=== PATIENT | male | born 1985 | race Asian ===

== ENCOUNTER 2018-11-10 21:30 | Emergency (ER) | payer MEDICAID ==
[~2018-11-10] VITALS: Ht 180.3 cm; Wt 118.5 kg
--- NOTE | 2018-11-10 21:42 | NUR ---
FS READ "HI"
[2018-11-10] MEDS ORDERED: SODIUM CHLORIDE FLUSH 10ML SYR IVF ONE (22:00)
[2018-11-10] MEDS ORDERED: SODIUM CHLORIDE 0.9% 1,000ML IVBOLUS ONE ×2 (22:00→23:30)
--- NOTE | 2018-11-10 22:00 | NUR ---
PT PRESENTS TO ED WITH C/O LEFT FLANK PAIN X 2 WEEKS. PT HAS HX DM1 AND REPORTS HE IS COMPLIANT WITH METFORMIN AND INSULIN. PT IS A&O, RESPS EVEN AND UNLABORED, DENIES N/V. PIV PLACED, LABS DRAWN AND SENT TO LAB, PT INSTRUCTED TO PROVIDE CLEAN CATCH UA. PT DENIES URGE TO VOID AT THIS TIME, URINAL AT BEDSIDE. BP AND SPO2 MONITORS IN PLACE. CALL LIGHT IN REACH. AWAITING CT, LAB AND UA RESULTS AT THIS TIME.
[2018-11-10 22:12] LABS: BASOPHILS # (AUTO) 0.02 x10^3/uL (0-0.1); BASOPHILS % (AUTO) 0 % (0-1); EOSINOPHILS # (AUTO) 0.04 x10^3/uL (0-0.4); EOSINOPHILS % (AUTO) 1 % (1-7); LYMPHOCYTES # (AUTO) 1.96 x10^3/uL (1-3.4); LYMPHOCYTES % (AUTO) 35 % (22-44); MD NO; MEAN CORPUSCULAR HEMOGLOBIN 28.5 pg (27.5-34.5); MEAN CORPUSCULAR HGB CONC 34.5 g/dL (33.2-36.2); MEAN CORPUSCULAR VOLUME 82.7 fL (81-97); MEAN PLATELET VOLUME 8.5 fL (7.4-10.4); MONOCYTES % (AUTO) 7 % (2-9); NEUTROPHILS # (AUTO) 3.25 x10^3/uL (1.8-6.8); NEUTROPHILS % (AUTO) 57 % (42-75); PLATELET COUNT 213 x10^3/uL (130-400); RED BLOOD COUNT 5.54 x10^6/uL (4.38-5.82); RED CELL DISTRIBUTION WIDTH 12.4 % (9.4-14.8)
[2018-11-10 22:25] LABS: ALANINE AMINOTRANSFERASE 30 U/L (12-78); ANION GAP 11 mmol/L (5-15); CALCIUM 8.7 mg/dL (8.5-10.1); CHLORIDE 96 mmol/L (98-107); CREATININE 1.41 mg/dL (0.7-1.3)
[2018-11-10 22:28] LABS: ALKALINE PHOSPHATASE 76 U/L (45-117); BILIRUBIN,TOTAL 0.4 mg/dL (0.2-1.0); TOTAL PROTEIN 7.2 g/dL (6.4-8.2)
--- NOTE | 2018-11-10 22:39 | NUR ---
EDMD Austin aware of critical blood glucose at 660, insulin order received.
--- NOTE | 2018-11-10 22:45 | NUR ---
NOTIFIED THAT PT HAS NOT FINISHED IVF COMPLETELY, RN TO RECHECK FSBS AGAIN PRIOR TO INSULIN ADMIN.
[2018-11-10] MEDS ORDERED: INSULIN REGULAR 100 UNITS/ML, 3ML VIAL IVPush ONE (23:00)
[2018-11-10 23:06] LABS: CULTURE INDICATED? YES; MICROSCOPIC INDICATED
[2018-11-10] MEDS ORDERED: INSULIN LISPRO 100 UNITS/ML, PEN ONE (23:09)
--- NOTE | 2018-11-10 23:19 | NUR ---
NS BOLUS COMPLETED, REPEAT FINGERSTICK TAKEN BY THIS RN; REPEAT BLOOD GLUCOSE 556. MD ROSARIO NOTIFIED, RN INSTRUCTED TO ADMINISTER 7 U IV HUMULIN R INSULIN PREVIOUSLY ORDERED. PER MD, PT DOES NOT NEED BLOOD GAS BICARB LEVEL IN CMP IS WNL. PT MEDICATED PER EMAR, TOLERATED WELL. ALL MONITORS IN PLACE. PT IS SINUS TACH RATE 100'S WITH NO ECTOPY. PT IS AWAKE, ALERT AND ORIENTED, RESPS EVEN AND UNLABORED. PT REPORTS FLANK PAIN TOLERABLE, DECLINES NEED FOR PAIN MEDICATION. PT AWAITING REPEAT FINGERSTICK BLOOD GLUCOSE AND DISPO.
[2018-11-10] MEDS ORDERED: LISI-170 PO (23:24)
[2018-11-10] MEDS ORDERED: METF500T17 PO (23:24)
[2018-11-10] MEDS ORDERED: VITAMIN D PO (23:25)
[2018-11-10] MEDS ORDERED: LONG ACTING INSULIN SQ (23:25)
--- NOTE | 2018-11-10 23:55 | NUR ---
report given to JACK Tracey. pt to have repeat fingerstick glucose after second liter NS infusion complete. pt is a&ox4, resps even and unlabored. pt has no complaint at this time.
[2018-11-10 23:59] VITALS: BP 139/81
--- NOTE | 2018-11-11 00:45 | NUR ---
Patient/Caregiver given discharge instructions and they have confirmed that they understand the instructions. Patient ambulatory with steady gait.
== END 2018-11-11 00:47 | disposition home or self-care (01) ==
LOC: ED 22:48
DX: E11.65 Type 2 diabetes mellitus with hyperglycemia (principal); R10.32 Left lower quadrant pain
CPT/HCPCS: 36415; 74176; 80053; 81001; 83690; 85025; 87086; 96361; 96374; 99284; J1815; J7030